=== PATIENT | female | born 1975 | race African-American/Black ===

== ENCOUNTER 2022-05-04 15:23 | Outpatient (CLI) | payer OTHER, SELFPAY ==
[2022-05-04 13:35] LABS: Chloride* 111 mmol/L (96-114); Potassium* 4.4 mmol/L (3.6-5.1); Sodium* 138 mmol/L (135-149)
[2022-05-04 13:38] LABS: Creatinine* 0.8 mg/dL (0.5-1.5); Estimated Glomerular Filt Rate 90 ml/min
[2022-05-04 13:39] LABS: Blood Urea Nitrogen* 17 mg/dL (5-24); Calcium* 8.6 mg/dL (8.4-10.6); Carbon Dioxide* 20 mmol/L (20-32); Glucose* 89 mg/dL (60-115)
== END 2022-05-04 15:24 | disposition home or self-care (01) ==
PROVIDERS: PCP Internal Medicine; Visit Provider Internal Medicine
DX: I10 Essential (primary) hypertension (principal)
CPT/HCPCS: 80048

== ENCOUNTER 2023-11-28 14:47 | Outpatient (CLI) | payer OTHER, SELFPAY ==
--- OUTSIDE RECORDS SUMMARY | 2023-11-28 15:01 | XMS_ITS | Clinical Summary ---
Author Organization [place] Address [facility] [place] [address] Care Team Providers Care Senior Materials Scientist Name Role Phone Fatou Pino MD Primary Care Provider Allergies Active Allergy Reactions Criticality Noted Date Comments [place] Oil Itching 08/20/2015 Nuts Anaphylaxis High 03/12/2015 Almonds, peanuts Peanut (Diagnostic) Anaphylaxis High 05/14/2013 Medications Medication Sig Dispensed Refills Start Date End Date Status acetaminophen (TYLENOL) 325 MG tablet Take 325-650 mg by mouth every 8 hours as needed 10/15/2015 Active amLODIPine (NORVASC) 5 MG tabletIndications:Secon maikel cardiomyopathy (H) Take 1 tablet (5 mg) by mouth daily 90 tablet 3 03/21/2022 Active lisinopril-hydrochlorot hiazide (ZESTORETIC) 20-25 MG tabletIndications:HTN (hypertension) Take 1 tablet by mouth daily 90 tablet 05/09/2023 Active Active Problems Problem Noted Date Diagnosed Date Benign essential hypertension 12/29/2015 Mitral regurgitation 1-2+ per echo 12-16-201512/10 Kidney stone 12/29/2015 Orthopnea 12/15/2015 Non-ischemic cardiomyopathy Encounters Date Type Department Care Team Description 11/09/2023 MyC Medical Advice [facility] [place] [id number] [facility] [address] [place] [phone] Daniela Koo RN 11/02/2023 Telephone [facility] [id number] [place] [phone] Omar Rouse MD Call Back (Fitbit HSA form ) from Last 3 Months Family History Medical History Relation Comments Coronary Artery Disease Paternal Grandfather Relation Status Comments Paternal Grandfather Social History Tobacco Use Types Packs/Day Years Used Date Smoking Tobacco: Never Smokeless Tobacco: Never Tobacco Cessation:Counseling Given: No Alcohol Use Standard Drinks/Week Comments Yes 0 (1 standard drink = 0.6 oz pur e alcohol) occ Adolescent Education Answer Date Record ed Getting School Help Needed Not on file 03/03 Sex and Gender Information Value Date Recorded Sex Assigned at Not on file Gender Identity Not on file Sexual Orientation Not on file Last Filed Vital Signs Vital Sign Reading Time Taken Comments Blood Pressure 138/88 07/26/2021 7:38 AM SMALL BUSINESS CONSULTANT Pulse 91 07/26/2021 7:38 AM SMALL BUSINESS CONSULTANT Temperature 36.1 ??C (96.9 ??F) 12/17/2015 7:54 AM CD T Respiratory Rate 18 12/17/2015 7:54 AM CDT Oxygen Saturation 97% 09/28/2017 2:00 PM CDT Inhaled Oxygen Concentration - - Weight 96.2 kg (212 lb) 07/26/2021 7:38 AM SMALL BUSINESS CONSULTANT Height 161.3 cm (5' 3.5) 07/26/2021 7:38 AM SMALL BUSINESS CONSULTANT Body Mass Index 36.97 07/26/2021 7:38 AM SMALL BUSINESS CONSULTANT Plan of Treatment Health Maintenance Due Date Last Done Comments ADVANCE CARE PLANNING 1973 ANNUAL REVIEW OF HM ORDERS 1973 CT COLONOGRAPHY 1973 FIT 1973 FLEX SIG 1973 YEARLY PREVENTIVE VISIT 1973 sDNA (Cologuard) 1973 Pneumococcal Vaccine: Pediatrics (0 to 5 Years) and At-Risk Patients (6 to 64 Years) (1 of 2 - PCV) 1979 COLONOSCOPY 1983 COLORECTAL CANCER SCREENING 1983 HIV SCREENING 1988 HEPATITIS C SCREENING 1991 HEPATITIS B IMMUNIZATION (3 of 3 - 19+ 3-dose series) 05/20/2011 03/25/2011, 12/24/2009 LIPID 2013 PAP 04/19/2016 04/19/2013 MAMMO SCREENING 01/06/2023 01/06/2021 COVID-19 Vaccine ( season) 2023 06/01/2021, 09/26/2020, 09/05/2020 GLUCOSE 02/23/2023 02/24/2020, 05/12, 04/27/2016, Additional history exists ZOSTER IMMUNIZATION (1 of 2) 2023 PHQ-2 (once per calendar year) 2023 03/16/2015, 03/12/2015 INFLUENZA VACCINE (Season Ended) 2024 05/24/2012 DTAP/TDAP/TD IMMUNIZATION (4 - Td or Tdap) 11/24/2025 11/25/2015, 10/14/2015, 11/20/2009 HPV IMMUNIZATION Aged Out No longer e ligible based on patient's age to complete this topic IPV IMMUNIZATION Aged Out No longer e ligible based on patient's age to complete this topic MENINGITIS IMMUNIZATION Aged Out No l onger eligible based on patient's age to complete this topic RSV MONOCLONAL ANTIBODY Aged Out No l onger eligible based on patient's age to complete this topic Procedures Procedure Name Priority Date/Time Associated Diagnosis Comments MAMMOGRAM - HIM SCAN 01/06/2021 12:00 AM CDT BASIC METABOLIC PANEL Routine 02/24/2020 9:55 AM CDT Non-ischemic cardiomyopathy (H) ABSTRACT PAP ([facility] EXTERNAL RESULT) Routine 04/19/2013 from Last 3 Months or Most Recently Relevant to Health Maintenance Results * MAMMOGRAM - HIM SCAN (01/06/2021 12:00 AM CDT) Anatomical Region Laterality Modality Other 01/06/2021 Provider Outside IMG MAMMOGRAPHY LIYAH CARLOS * (ABNORMAL) Basic metabolic panel (02/24/2020 9:55 AM CDT) Sodium 138 136 - 145 mmol/L 02/24/2020 10:48 AM CDT [facility] Potassium 3.9 3.5 - 5.1 mmol/L 02/24/2020 10:48 AM CDT [facility] Chloride 105 98 - 107 mmol/L 02/24/2020 10:48 AM CDT [facility] Carbon Dioxide 22(L) 23 - 29 mmol/L 02/24/2020 10:48 AM CDT [facility] Anion Gap 14.9 6 - 17 mmol/L 02/24/2020 10:48 AM CDT [facility] Glucose 87 70 - 105 mg/dL 02/24/2020 10:48 AM CDT [facility] Urea Nitrogen 16 7 - 30 mg/dL 02/24/2020 10:48 AM CDT [facility] Creatinine 1.24 0.70 - 1.30 mg/dL 02/24/2020 10:48 AM CDT [facility] GFR Estimate 47(L) >60 mL/min/{1. 73_m2} 02/24/2020 10:48 AM CDT [facility] GFR Estimate If Black 56(L) >60 mL/min/{1. 73_m2} 02/24/2020 10:48 AM CDT [facility] Calcium 9.8 8.5 - 10.5 mg/dL 02/24/2020 10:48 AM CDT [facility] Blood specimen (specimen) 02/24/2020 9:55 AM CDT 02/24/2020 9:56 AM CDT Omar Rouse MD LAB - BLOOD ORDERABL ES Performing Organization Address City/[facility]/ZIP Co de Phone Number [facility] [address] [facility] [address] [place] [address] * ABSTRACT PAP-NO CHARGE (04/19/2013) 04/19/2013 Provider Scan LAB - HIM EXTERNAL R ESULT EXTERNAL LAB External Lab from Last 3 Months or Most Recently Relevant to Health Maintenance Advance Directives For more information, please contact: [phone] * Full Code (Latest Code Status on File) Date Activated Date Inactivated Comments 12/17/2015 1:39 PM * Full Code Date Activated Date Inactivated Comments 12/15/2015 11:12 PM 12/17/2015 1:39 PM Care Teams Senior Materials Scientist Relationship Specialty Start Date End Date Fatou Pino MD [facility] & [address] [address] PCP - General Internal Medicine 10/28/15
--- OUTSIDE RECORDS SUMMARY | 2023-11-28 15:01 | XMS_ITS | Encounter Summary ---
Author Organization [place] Address [facility] [place] [address] Care Team Providers Care Metal Miner Name Role Phone Fatou Pino MD Primary Care Provider Encounter Details Date Type Department Care Team (Late st Contact Info) Description 07/31/2023 [facility] Medical Advice [facility] [address] [phone] Daniela Koo, RN Social History Tobacco Use Types Packs/Day Years Used Date Smoking Tobacco: Never Smokeless Tobacco: Never Alcohol Use Standard Drinks/Week Comments Yes 0 (1 standard drink = 0.6 oz pur e alcohol) occ Adolescent Education Answer Date Record ed Getting School Help Needed Not on file 03/03 Sex and Gender Information Value Date Recorded Sex Assigned at Not on file Gender Identity Not on file Sexual Orientation Not on file documented as of this encounter Plan of Treatment Not on file documented as of this encounter Visit Diagnoses Not on filedocumented in this encounter Care Teams Metal Miner Relationship Specialty Start Date End Date Fatou Pino MD [facility] [address] [place] [address] PCP - General Internal Medicine 10/28/15 documented as of this encounter
--- OUTSIDE RECORDS SUMMARY | 2023-11-28 15:01 | XMS_ITS | Encounter Summary ---
Author Organization [place] Address [address] [facility] [place] [address] Care Team Providers Care Credit Verifier Name Role Phone Fatou Pino MD Primary Care Provider Reason for Visit * Reason Onset Date Comments Call Back 11/02/2023 Fitbit HSA form Encounter Details Date Type Department Care Team (Late st Contact Info) Description 11/02/2023 Telephone [facility] [address] [place] [phone] Omar Rouse MD [address] [facility] [address] [place], [place] [phone] Call Back (Fitbit HSA form ) Social History Tobacco Use Types Packs/Day Years [...] on file documented as of this encounter Miscellaneous Notes * Telephone Encounter - Daniela Koo RN - 11/09/2023 2:28 PM CDT In collaboration with team, we are requesting that Idalmis discuss with Dr. Rouse at her office visit, the need for a letter to use for her fitbit. She has not been seen in 2 years time, and Dr. Rouse will need to see her to evaluate what diagnosis would be appropriate and what is going on currently with Idalmis. Team has sent Idalmis a MyChart response to her request. Daniela Koo RN on 11/09/2023 at 2:30 PM * Telephone Encounter - Daniela Koo RN - 11/07/2023 9:08 AM CDT Patient called to request a new, updated version of the letter for needing a Fitbit. She states that Dr. Rouse provided this for her several years ago, but that her Fitbit is now broken and she needs to replace it. Would Dr. Rouse please give her a new letter? Patient needs to get on the schedule for her next MD appointment with an Echocardiogram prior to the visit. She states she does not believe that her insurance will pay for an Echocardiogram prior to the same date as last year. Enamel Sprayer requested her to call and get the Echo appointment anytime after January 12. I also explained that we need the Echo prior to the OV with Dr. Rouse, so he can review andmake any changes necessary. Informed her that it will take at least a month to get in for an Echo the way things are scheduling now, so encouraged her to call back and get scheduled. Informed her we can't request a prior auth until there is an appointment scheduled. She states she is on the waiting list for Dr. Rouse and will take whatever appointment comes up, otherwise she does not have an apmnt scheduled. Daniela Koo RN on 11/07/2023 at 9:14 AM * Telephone Encounter - Alpa Donovan - 11/02/2023 3:02 PM CDT [facility] Phone Message May a detailed message be left on voicemail: yes Reason for Call: Other: Patient was calling to schedule and get a letter or form stating that she needs a Fitbit. Per her HSA she needs something stating she needs that device. Patient is not scheduled but on wait list. Please reach out. Thank you Action Taken: Other: cardiology Travel Screening: Not Applicable Thank you! [facility] documented in this encounter Plan of Treatment Not on file documented as of this encounter Visit Diagnoses Not on filedocumented in this encounter Care Teams Credit Verifier Relationship Specialty Start Date End Date Fatou Pino MD [place] [id number] PCP - General Internal Medicine 10/28/15 documented as of this encounter
--- OUTSIDE RECORDS SUMMARY | 2023-11-28 15:01 | XMS_ITS | Encounter Summary ---
Author Organization [place] Address [facility] [place] [address] Care Team Providers Care Power Truck Driver Name Role Phone Fatou Pino MD Primary Care Provider Encounter Details Date Type Department Care Team (Late st Contact Info) Description 11/09/2023 [facility] Medical Advice [facility] Heart [address] [phone] Daniela Koo, RN Social History Tobacco Use [...] on filedocumented in this encounter Care Teams Power Truck Driver Relationship Specialty Start Date End Date Fatou Pino MD [facility] [address] [place] [address] PCP - General Internal Medicine 10/28/15 documented as of this encounter
--- OUTSIDE RECORDS SUMMARY | 2023-11-28 15:01 | XMS_ITS | Referral Summary ---
Author Organization [place] Address [address] [facility] [place] [address] Care Team Providers Care Cable Reeler Name Role Phone Fatou Pino MD Primary Care Provider Encounters Date Type Department Care Team Description 11/09/2023 MyC Medical Advice [facility] Heart [place] [id number] [facility] [address] [place] [phone] Daniela Koo RN 11/02/2023 Telephone [facility] [address] [facility] [address] [place] [phone] Omar Rouse MD Call Back ([employer] HSA form ) from Last 3 Months Allergies Active Allergy Reactions Criticality Noted Date Comments [place] Oil Itching 08/20/2015 Nuts Anaphylaxis High 03/12/2015 [...] Kidney stone 12/29/2015 Orthopnea 12/15/2015 Non-ischemic cardiomyopathy Social History Tobacco Use Types Packs/Day Years [...] Comments Blood Pressure 138/88 07/26/2021 7:38 AM PRODUCT DESIGNER Pulse 91 07/26/2021 7:38 AM PRODUCT DESIGNER Temperature 36.1 ??C (96.9 ??F) 12/17/2015 7:54 AM CD T Respiratory Rate 18 12/17/2015 7:54 AM CDT Oxygen Saturation 97% 09/28/2017 2:00 PM CDT Inhaled Oxygen Concentration - - Weight 96.2 kg (212 lb) 07/26/2021 7:38 AM PRODUCT DESIGNER Height 161.3 cm (5' 3.5) 07/26/2021 7:38 AM PRODUCT DESIGNER Body Mass Index 36.97 07/26/2021 7:38 AM PRODUCT DESIGNER Plan of Treatment Not on file Procedures Procedure Name Priority Date/Time Associated Diagnosis Comments MAMMOGRAM - HIM SCAN 01/06/2021 12:00 AM CDT BASIC METABOLIC PANEL Routine 02/24/2020 9:55 AM CDT Non-ischemic cardiomyopathy (H) ABSTRACT PAP (HIM EXTERNAL RESULT) Routine 04/19/2013 from Last 3 Months or Most Recently Relevant to Health Maintenance Results * MAMMOGRAM - HIM SCAN (01/06/2021 12:00 AM CDT) Anatomical Region Laterality Modality Other 01/06/2021 Provider Outside IM MAMMOGRAPHY LIYAH CARLOS * (ABNORMAL) Basic metabolic panel (02/24/2020 9:55 AM CDT) Pathologist [facility] Sodium 138 136 - 145 mmol/L 02/24/2020 10:48 AM CDT [facility] Potassium 3.9 3.5 - 5.1 mmol/L 02/24/2020 10:48 AM CDT [facility] Chloride 105 98 - 107 mmol/L 02/24/2020 10:48 AM CDT [facility] Carbon Dioxide 22(L) 23 - 29 mmol/L 02/24/2020 10:48 AM CDT [facility] Anion Gap 14.9 6 - 17 mmol/L 02/24/2020 10:48 AM CDT [facility] Glucose 87 70 - 105 mg/dL 02/24/2020 10:48 AM CDT [facility] Urea Nitrogen 16 7 - 30 mg/dL 02/24/2020 10:48 AM CDT [facility] Creatinine 1.24 0.70 - 1.30 mg/dL 02/24/2020 10:48 AM CDT [facility] GFR Estimate 47(L) >60 mL/min/{1. 73_m2} 02/24/2020 10:48 AM CDT [facility] GFR Estimate If Black 56(L) >60 mL/min/{1. 73_m2} 02/24/2020 10:48 AM CDT [facility] Calcium 9.8 8.5 - 10.5 mg/dL 02/24/2020 10:48 AM CDT [facility] Blood specimen (specimen) 02/24/2020 9:55 AM CDT 02/24/2020 9:56 AM CDT Omar Rouse MD LAB - BLOOD ORDERABL ES [facility] [address] [facility] [address] [place], [place] [address] * ABSTRACT PAP-NO CHARGE (04/19/2013) 04/19/2013 Provider Scan LAB - HIM EXTERNAL R ESULT EXTERNAL LAB External Lab from Last 3 Months or Most Recently Relevant to Health Maintenance Advance Directives For more information, please contact: [phone] * Full Code (Latest Code Status on File) Date Activated Date Inactivated Comments 12/17/2015 1:39 PM * Full Code Date Activated Date Inactivated Comments 12/15/2015 11:12 PM 12/17/2015 1:39 PM Care Teams Cable Reeler Relationship Specialty Start Date End Date Fatou Pino MD [facility] & [address] [address] PCP - General Internal Medicine 10/28/15
--- OUTSIDE RECORDS SUMMARY | 2023-11-28 15:02 | XMS_ITS | Clinical Summary ---
Author Organization [facility] Address [address] [place] [address] Care Team Providers Care Airline Manager Name Role Phone Fatou Pino MD Primary Care Provider [phone] Source Comments You are receiving this document as you are listed as the primary care provider,follow-up provider, or the patient has been referred to you for consultation.This is in compliance with the Medicare and[facility] EHR Incentive Program,which states Providers who transition their patient to another setting of careor provider of care or refers their patient to another provider of care shouldprovide summary care record for each transition of care or referral. [facility] Allergies No known active allergies Medications Medication Sig Dispensed Refills Start Date End Date Status hydrALAZINE (APRESOLINE) 100 MG tablet Take 100 mg by mouth two times a day. Active labetalol (TRANDATE) 200 MG tablet Take 200 mg by mouth two times a day. Active sulfamethoxazole-trimet hoprim (BACTRIM DS,SEPTRA DS) 800-160 MG tablet Take 1 Tab by mouth two times a day. Active Social History Tobacco Use Types Packs/Day Years Used Date Smoking Tobacco: Never Smokeless Tobacco: Never Tobacco Cessation:Counseling Given: No Alcohol Use Standard Drinks/Week Comments No 0 (1 standard drink = 0.6 oz pur e alcohol) Sex and Gender Information Value Date Recorded Sex Assigned at Not on file Gender Identity Not on file Sexual Orientation Not on file Last Filed Vital Signs Vital Sign Reading Time Taken Comments Blood Pressure 128/91 03/05/2017 8:24 PM CDT Pulse 89 03/05/2017 8:24 PM CDT Temperature 36.6 ??C (97.8 ??F) 03/05/2017 8:24 PM CD T Respiratory Rate 16 03/05/2017 8:24 PM CDT Oxygen Saturation 98% 03/05/2017 8:24 PM CDT Inhaled Oxygen Concentration - - Weight 82.6 kg (182 lb) 03/05/2017 8:24 PM CDT Height 161.3 cm (5' 3.5) 03/05/2017 8:24 PM CDT Body Mass Index 31.73 03/05/2017 8:24 PM CDT Plan of Treatment Health Maintenance Due Date Last Done Comments Cervical Cancer Screening Due 1973 Colon Cancer Screening Plan Due 1973 Hep C Screening (Preventive Services) 1973 Mammogram 1973 HIV Screening (Preventive Services) 1989 Adult Preventive Visit 1991 DTaP/Tdap/Td (1 - Tdap) 1992 HepB (1) 1992 Cholesterol 2018 COVID-19 Vaccine ( - 2022-2 4 season) 2023 Zoster/Shingles (1 of 2) 2023 Influenza (Season Ended) 2024 HepA Aged Out No longer eligi ble based on patient's age to complete this topic Hib Aged Out No longer eligi ble based on patient's age to complete this topic IPV (Polio) Aged Out No longer eligi ble based on patient's age to complete this topic MCV4 Aged Out No longer eligi ble based on patient's age to complete this topic Pneumococcal Aged Out No longer eligi ble based on patient's age to complete this topic Care Teams Airline Manager Relationship Specialty Start Date End Date Fatou Pino MD [address] [place] [address] PCP - General Internal Medicine 03/05/17
--- OUTSIDE RECORDS SUMMARY | 2023-11-28 15:02 | XMS_ITS | Clinical Summary ---
Author Organization [facility] Address [place], [place] [address] Care Team Providers Care Np Name Role Phone Fatou Pino MD Primary Care Provider [phone] Allergies Active Allergy Reactions Criticality Noted Date Comments [place] Oil Itching 08/20/2015 Peanut Anaphylaxis High 05/14/2013 Medications Medication Sig Dispensed Refills Start Date End Date Status labetalol (TRANDATE) 300 mg tabletIndications :hypertension Take 600 mg by mouth 2 times daily. Indications: HYPERTENSION Active acetaminophen (TYLENOL) 325 mg tabletIndications :Status post primary low transverse section Take 1-2 tablets by mouth every 4 hours if needed for Other (Specify) (mild pain). Max acetaminophen dose: 4000mg in 24 hrs. 100 tablet 0 10/15/2015 Active ibuprofen (MOTRIN IB) 200 mg tabletIndications :Status post primary low transverse section Take 1-3 tablets by mouth every 6 hours if needed for Other (Specify) (for uterine cramping). Take with food. 100 tablet 0 10/15/2015 Active vitamin-folic acid 1 mg ( RX) tablet/capsuleInd ications:Status post primary low transverse section Take 1 tablet by mouth once daily. 100 tablet 0 10/15/2015 Active docusate (COLACE) 100 mg capsuleIndication s:Status post primary low transverse section Take 1 capsule by mouth once daily. 100 capsule 0 10/15/2015 Active HYDROcodone-aceta minophen, 5-325 mg, (NORCO) per tabletIndications :Status post primary low transverse section Take 1-2 tablets by mouth every 4 hours if needed for Pain. Max acetaminophen dose: 4000 mg in 24 hrs. 30 tablet 10/15/2015 Active Breast Pump - PurchaseIndicatio ns:Status post primary low transverse section For home use. Gestation age at delivery: 37 weeks. Reason for need: lactating mother. Length of need: indefinite. 1 Device 0 10/15/2015 Active Active Problems Problem Noted Date Diagnosed Date Preexisting hypertension com plicating , with delivery, current hospitalization 10/14/2015 Status post primary low transverse sect ion 10/14/2015 Pre-eclampsia superimposed o n chronic hypertension, antepartum 08/22/2015 Obesity (BMI 30.0-34.9) 08/22/2015 Anemia affecting in third trimester Pyelonephritis affecting in third trim k[place] 08/20/2015 Elderly multigravida in second trimester 016 Preexisting hypertension complicating , antepartum 06/18/2015 Overview: Labetalol 600 milligrams daily Uterine fibroid during , antepartum 12/2015 Overview: Small residual myomata: Posterior: 3.3/3.1/3 [L/W/D] in cm[s] Anterior/left: 2.2/2.5/1.9 Anterior mid: 1.4/1.9/1.2 Anterior/right: 1.1/1.1/1 Resolved Problems Problem Noted Date Diagnosed Date Resolved Date MPP consult 04/20/2015 016 Overview: REASON FOR CONSULT: Complete U/S and Consult with Perinatologist GESTATIONAL AGE: CALEB: 10/29/15 /PARITY: TODAY'S APPOINTMENT: PRIMARY DIAGNOSIS: History of Infertility, multiple failed IVF, History of uterine artery ablation to treat fibroids and 10 fibroids removed as well as a 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 Also AMA and Hypertension LAST GROWTH: TESTING PLANS: REFERRING PHYSICIAN & PHONE: Dr Armani Ribeiro, SPECIALISTS & PHONE: [place]: CARE COORDINATION: MEDS: BLOOD TYPE/LABS: Pending on copy of labs GENETICS: DATE: COUNSELOR: PLAN: PLAN OF CARE: Intramural leiomyoma of uterus 05/17/2013 06/18/2015 Immunizations Name Administration Dates Next Due MMR 10/14/2015 Tdap 10/14/2015 Family History Medical History Relation Name Comments Good Health Brother Cancer-prostate Father Unknown Maternal Grandfather Diabetes Maternal Grandmother d Diabetes Mother Hypertension Mother Unknown Paternal Grandfather Other Paternal Grandmother at age 94 Diabetes Sister Half -Sister Good Health Sister Relation Name Status Comments Brother Father Maternal Grandfather Maternal Grandmother Mother Paternal Grandfather Paternal Grandmother Sister Social History Tobacco Use Types Packs/Day Years Used Date Smoking Tobacco: Never Alcohol Use Standard Drinks/Week Comments Yes 0 (1 standard drink = 0.6 oz pure alcohol) occas. 1-2 drinks twice a month Sex and Gender Information Value Date Recorded Sex Assigned at Not on file Gender Identity Not on file Sexual Orientation Not on file Obstetrics History Para Term AB IAB SAB Ectopic Multiple Livin g Live Births 2 1 1 0 1 0 1 0 1 1 1 Date Outcome GA Total Labor Labor/2nd/3rd Weight Sex Type Anes PTL Mirlande A1 A5 Name Clin SAB 2015 Term 37w 4d 2.6 kg (5 lb 11.7 oz) M C-Sec tion Spinal N Livin g [address] Moody Complications:None Delivery Location:[facility] Last Filed Vital Signs Vital Sign Reading Time Taken Comments Blood Pressure 162/104 10/19/2015 11:00 AM CDT Pulse 78 10/19/2015 11:00 AM CDT Temperature 36.8 ??C (98.2 ??F) 10/19/2015 11:00 AM C DT Respiratory Rate 18 10/19/2015 11:00 AM CDT Oxygen Saturation 96% 10/14/2015 4:40 PM CDT Inhaled Oxygen Concentration - - Weight 88.2 kg (194 lb 8 oz) 10/14/2015 9:41 AM CDT Height 160 cm (5' 3) 10/12/2015 8:08 AM CDT Body Mass Index 34.45 10/12/2015 8:08 AM CDT Plan of Treatment Health Maintenance Due Date Last Done Comments Depression screening for age 12+ 1985 HIV for age 15-65 1988 BMI (ht and wt on same day) for age 18+ 1991 Hepatitis C screening for ag e 18-79 1991 Pap test for age 21-65 08/10/2014 08/11/2011 Colonoscopy through age 75 2018 Lipids for age 45-75 2018 Mammogram for age 45-75 2018 COVID-19 vaccine series ( - 2022-24 season) 2023 Zoster (shingles) series for age 50+ (1 of 2) 2023 Influenza for age 50-64 02/11/2024 Tetanus booster 10/13/2025 10/14/2015 Tdap Completed 10/14/2015 Pneumococcal series for age 6-64 Aged Out No longer eligible based on patient's age to complete this topic Procedures Procedure Name Priority Date/Time Associated Diagnosis Comments GYNECOLOGICAL PANEL Timed 08/11/2011 8 :50 AM MALTED MILK MIXER from Last 3 Months or Most Recently Relevant to Health Maintenance Results * GYNECOLOGICAL PANEL (08/11/2011 8:50 AM MALTED MILK MIXER) CYTOLOGY CYTOPATHOLOGY REPORT [facility] Status: Final Status ?[id number] CLINICAL INFORMATION Last Date of LMP ? :08/05/11 Last Pap Date ?:Not given Last Pap Result ?:WNL Point/Bx done today ? :No HPV Request ?:HPV if ASCUS SPECIMEN SOURCE ?:Cervical/vagina l ThinPrep Vial, screening SPECIMEN ADEQUACY ?:Satisfactory for evaluation Endocervical component ? present. INTERPRETATION/RES ULT Negative for intraepithelial lesion or malignancy (NIL) Cytology 1st Screener ??:cam Signed by ?:cam This specimen was screened by the FDA approved ThinPrep Imaging System and manually reviewed. NOTE: ??The Pap test is a screening technique, not a diagnostic procedure. ??It is used ??primarily to screen for squamous cancers and precursor lesions. ??Published studies have shown that it is subject to both false negative and false positive results. ??The pap test should not be used as the sole means to diagnose or exclude pre-malignant and malignant lesions. COLLECTED:08/11/11 ? ACCESSIONED: ??08/15/11 ?? SIGNED: ??08/17/11 [facility] [place] CODE NIL [facility] 08/11/2011 8:50 AM MALTED MILK MIXER 08/15/2011 8:50 AM MALTED MILK MIXER Cally Toribio PATHOLOGY/CYTOLOGY [facility] [place]NAL ZIP [id number] [place] [id number] from Last 3 Months or Most Recently Relevant to Health Maintenance Advance Directives * Full Code (Latest Code Status on File) Date Activated Date Inactivated Comments 10/12/2015 12:04 PM 10/15/2015 6:00 PM * Full Code Date Activated Date Inactivated Comments 10/12/2015 8:29 AM 10/12/2015 12:04 PM * Full Code Date Activated Date Inactivated Comments 08/20/2015 4:59 PM 08/28/2015 2:54 PM * Full Code Date Activated Date Inactivated Comments 08/20/2015 2:06 PM 08/20/2015 4:59 PM * Full Code Date Activated Date Inactivated Comments 09/10/2013 7:33 AM 09/10/2013 3:17 PM Care Teams Np Relationship Specialty Start Date End Date Fatou Pino MD PCP - General Internal Medicine 05/13/13
--- OUTSIDE RECORDS SUMMARY | 2023-11-28 15:02 | XMS_ITS | Encounter Summary ---
Author Organization [place] Address [facility] [place] [address] Care Team Providers Care Cloth Measurer Name Role Phone Fatou Pino MD Primary Care Provider Omar Rouse MD Unavailable [phone] Encounter Details Date Type Department Care Team (Late st Contact Info) Description 06/15/2021 [facility] [address] [phone] Jules Berry RN Social History Tobacco Use Types Packs/Day Years Used Date Smoking Tobacco: Never Smokeless Tobacco: Never Alcohol Use Standard Drinks/Week Comments Yes 0 (1 standard drink = 0.6 oz pur e alcohol) occ Sex and Gender Information Value Date Recorded Sex Assigned at Not on file Gender Identity Not on file Sexual Orientation Not on file COVID-19 Exposure Response Date Recorded In the last month, have you been in contact with someone who was confirmed or suspected to have Coronavirus / COVID-19? No / Unsure 06/07/2021 7:56 AM SENIOR STATISTICAL PROGRAMMER documented as of this encounter Plan of Treatment Not on file documented as of this encounter Visit Diagnoses Not on filedocumented in this encounter Care Teams Cloth Measurer Relationship Specialty Start Date End Date Fatou Pino MD [facility] [address] [place] [address] PCP - General Internal Medicine 10/28/15 Omar Rouse MD [address] [facility] [address] [place] [id number] Assigned Heart and Vascular Provider 04/03/20 01/27/23 documented as of this encounter
--- OUTSIDE RECORDS SUMMARY | 2023-11-28 15:02 | XMS_ITS | Encounter Summary ---
Author Organization [place] Address [address] [facility] [place] [address] Care Team Providers Care Senior Systems Architect Name Role Phone Fatou Pino MD Primary Care Provider Omar Rouse MD Unavailable [phone] Reason for Visit * Reason Onset Date Comments Call Back 07/02/2021 Call Pt Encounter Details Date Type Department Care Team (Late st Contact Info) Description 07/02/2021 [facility] [place] [address] [facility] [address] [place] [address] Omar Rouse MD [address] [facility] [address] [place], [place] [id number] Call Back (Call Pt) Social History Tobacco Use Types Packs/Day Years [...] COVID-19? No / Unsure 06/07/2021 7:56 AM ELEVATED MOTORMAN documented as of this encounter Miscellaneous Notes * Telephone Encounter - RenaldoCata Radha - 07/02/2021 10:02 AM CST [facility] Phone Message May a detailed message be left on voicemail: yes Reason for Call: Other: Pt son has COVID 19 and she needs to re-schedule. She was told 07-14-21 was open for however my schedule is not open until August? Please call pt to discuss her options. Thank-you. Action Taken: Message routed to: [facility] Travel Screening: Not Applicable ATED MOTORMAN documented in this encounter Plan of Treatment Not on file documented as of this encounter Visit Diagnoses Not on filedocumented in this encounter Care Teams Senior Systems Architect Relationship Specialty Start Date End Date Fatou Pino MD [facility] [address] [place] [address] PCP - General Internal Medicine 10/28/15 Omar Rouse MD [address] [facility] [address] [place] [address] Assigned Heart and Vascular Provider 04/03/20 01/27/23 documented as of this encounter
--- OUTSIDE RECORDS SUMMARY | 2023-11-28 15:02 | XMS_ITS | Encounter Summary ---
Author Organization [place] Address [facility] [address] Care Team Providers Care Life Skills Specialist Name Role Phone Fatou Pino MD Primary Care Provider [phone] Omar Rouse MD Unavailable [phone] Encounter Details Date Type Department Care Team (Late st Contact Info) Description 06/07/2021 [facility] [address] [phone] Jules Berry RN Social History Tobacco Use [...] COVID-19? No / Unsure 06/07/2021 7:56 AM RN PROCEDURE documented as of this encounter Plan of Treatment Not on file documented as of this encounter Visit Diagnoses Not on filedocumented in this encounter Care Teams Life Skills Specialist Relationship Specialty Start Date End Date Fatou Pino MD [facility] [address] [place] [address] PCP - General Internal Medicine 10/28/15 Omar Rouse MD [address] [facility] [address] [place] [id number] Assigned Heart and Vascular Provider 04/03/20 01/27/23 documented as of this encounter
--- OUTSIDE RECORDS SUMMARY | 2023-11-28 15:02 | XMS_ITS | Encounter Summary ---
Author Organization [place] Address [facility] [place] [address] Care Team Providers Care Child Care Coordinator Name Role Phone Fatou Pino MD Primary Care Provider Omar Rouse MD Unavailable [phone] Encounter Details Date Type Department Care Team (Late st Contact Info) Description 09/22/2021 [facility] [address] [phone] [facility] Social History Tobacco Use Types Packs/Day Years [...] on filedocumented in this encounter Care Teams Child Care Coordinator Relationship Specialty Start Date End Date Fatou Pino MD [facility] [address] [place] [address] PCP - General Internal Medicine 10/28/15 Omar Rouse MD [address] [facility] [address] [place] [id number] Assigned Heart and Vascular Provider 04/03/20 01/27/23 documented as of this encounter
== END 2023-11-28 14:48 | disposition home or self-care (01) ==
PROVIDERS: PCP Internal Medicine; Visit Provider Internal Medicine
DX: I10 Essential (primary) hypertension (principal); Z13.220 Encounter for screening for lipoid disorders
CPT/HCPCS: 80048; 80061

== ENCOUNTER 2025-01-08 12:23 | Outpatient (CLI) | payer BC, SELFPAY | END 2025-01-08 12:24 | disposition home or self-care (01) | LOC: NFLDREF 01-09 17:50 | PROVIDERS: PCP Internal Medicine; Referring Provider Internal Medicine; Visit Provider Internal Medicine | DX: I10 Essential (primary) hypertension (principal) | CPT/HCPCS: 80048 ==